=== PATIENT | female | born 1990 | race American Indian/Alaskan Native ===

== ENCOUNTER 2019-10-11 23:18 | Emergency (ER) | payer MEDICAID ==
[2019-10-12 00:21] LABS: Basophils % (Auto) 0.5 % (0.0-1.8); Eosinophils # (Auto) 0.2 K/mm3 (0.0-0.4); Eosinophils % (Auto) 2.3 % (0.0-4.3); Hematocrit 30.6 % (30.3-42.9); Hemoglobin 9.9 gm/dl (10.1-14.3); Lymphocytes # (Auto) 1.9 K/mm3 (1.2-5.4); Lymphocytes % (Auto) 27.8 % (13.4-35.0); Mean Corpuscular HGB Conc 32 % (30-34); Mean Corpuscular Volume 82 fl (79-97); Monocytes # (Auto) 0.4 K/mm3 (0.0-0.8); Monocytes % (Auto) 5.9 % (0.0-7.3); Platelet Count 167 K/mm3 (140-440); Red Blood Count 3.71 M/mm3 (3.65-5.03); Red Cell Distribution Width 15.5 % (13.2-15.2)
[2019-10-12 00:38] LABS: Bilirubin,Urine NEG (Negative); Blood,Urine LG (Negative); Color,Urine Yellow (Yellow); Mucus,Urine FEW /HPF; Urobilinogen,Urine < 2.0 mg/dL (<2.0)
[2019-10-12] MEDS ORDERED: ACETAMINOPHEN 325 MG TAB PO ONE (01:02)
--- NOTE | 2019-10-12 01:24 | Ultrasound Report ---
ULTRASOUND OBSTETRIC INDICATION / CLINICAL INFORMATION: 16 weeks with vaginal bleeding. Clinical Gestational Age (GA): 15 weeks 6 days TECHNIQUE: Transabdominal. COMPARISON: None available. FINDINGS: There is a single intrauterine . Biparietal Diameter = 3.4 cm = 16 weeks, 3 day(s). Head Circumference = 11.8 cm = 15 weeks, 6 day(s). Abdominal Circumference = 10.7 cm = 16 weeks, 4 day(s). Femur Length = 1.8 cm = 15 weeks, 3 day(s). Average Ultrasound Age (AUA) = 16 weeks, 1 day(s). Heart Rate: 155 beats per minute. Estimated Weight in grams (if calculated): 142 +/- 21 Estimated Weight Growth Percentile (if calculated): Position: cephalic. Cervix: closed. Length in cm (if measured): 5.2 Placenta: Anterior left lateral grade 0 and free of the os. Amniotic Fluid Volume: normal Amniotic Fluid Index (ASHA) in cm (if calculated): 7.0. Maternal Adnexa: Left ovary within normal limits. Simple right ovarian cyst measures 8.6 x 4.3 x 5.2 cm IMPRESSION: 1. Single, living intrauterine with estimated sonographic age of 16 weeks, 1 day(s). 2. 8.6 cm right ovarian follicular cyst Signer Name: Marcos Yusuf MD Signed: 10/12/2019 1:19 AM Workstation Name: [id number]
[2019-10-12 01:39] VITALS: BP 142/78
--- NOTE | 2019-10-12 01:50 | Emergency Department Report ---
ED HPI - General Chief complaint: Vaginal Bleeding Stated complaint: 16WEEKS BLEEDING Time Seen by Provider: 10/12/19 00:51 Source: patient Mode of arrival: Ambulatory Limitations: No Limitations - History of Present Illness Initial comments: Patient is a 28-year-old female presents emergency room with complaints of an episode of vaginal bleeding that occurred tonight when she went to the bathroom to urinate. She states that she had another episode when she first arrived to the emergency department. She states that the bleeding has since significantly improved. She states that she had some mild lower abdominal cramping but no significant pain. She denies any nausea, vomiting, diarrhea, fever, dysuria. She states that she has an appointment with [facility] this morning at 8:45 AM. She states that she also has an appointment with a high risk clinic on October 17. Patient states that she has a known ovarian cyst. /P:4/A:1. She states that she has had vaginal bleeding with previous pregnancies but they could not tell her what the bleeding was from. - Related Data Allergies Allergy/AdvReac Type Severity Reaction Status Date / Time codeine Allergy Swelling Verified 10/11/19 23:35 ED Review of Systems ROS: Stated complaint: 16WEEKS BLEEDING Other details as noted in HPI Comment: All other systems reviewed and negative ED Past Medical Hx - Past Medical History Previous Medical History?: Yes Hx Hypertension: Yes - Surgical History Past Surgical History?: Yes Hx Cholecystectomy: Yes - Social History Smoking Status: Never Smoker ED Physical Exam - General Limitations: No Limitations General appearance: alert, in no apparent distress - Head Head exam: Present: atraumatic, normocephalic - Eye Eye exam: Present: normal appearance - ENT ENT exam: Present: mucous membranes moist - Respiratory Respiratory exam: Present: normal lung sounds bilaterally. Absent: respiratory distress, wheezes, rales, rhonchi, stridor, chest wall tenderness, accessory muscle use, decreased breath sounds, prolonged expiratory - Cardiovascular Cardiovascular Exam: Present: regular rate, normal rhythm, normal heart sounds. Absent: systolic murmur, diastolic murmur, rubs, gallop - GI/Abdominal GI/Abdominal exam: Present: soft, normal bowel sounds. Absent: distended, tenderness, guarding, rebound, rigid - Neurological Exam Neurological exam: Present: alert, oriented X3 - Psychiatric Psychiatric exam: Present: normal affect, normal mood - Skin Skin exam: Present: warm, dry, intact ED Course Vital Signs 10/11/19 10/12/19 23:28 02:30 Temperature 98.3 F Pulse Rate 104 H 71 Respiratory 18 17 Rate Blood Pressure 142/78 O2 Sat by Pulse 100 100 Oximetry ED Medical Decision Making - Lab Data Result diagrams: 10/11/19 23:53 Lab Results 10/11/19 10/11/19 10/11/19 Range/Units 23:53 23:53 23:55 WBC 6.9 (4.5-11.0) K/mm3 RBC 3.71 (3.65-5.03) M/mm3 Hgb 9.9 L (10.1-14.3) gm/dl Hct 30.6 (30.3-42.9) % MCV 82 (79-97) fl MCH 27 L (28-32) pg MCHC 32 (30-34) % RDW 15.5 H (13.2-15.2) % Plt Count 167 (140-440) K/mm3 Lymph % (Auto) 27.8 (13.4-35.0) % [place] % (Auto) 5.9 (0.0-7.3) % Eos % (Auto) 2.3 (0.0-4.3) % Baso % (Auto) 0.5 (0.0-1.8) % Lymph # 1.9 (1.2-5.4) K/mm3 [place] # 0.4 (0.0-0.8) K/mm3 Eos # 0.2 (0.0-0.4) K/mm3 Baso # 0.0 (0.0-0.1) K/mm3 Seg Neutrophils % 63.5 (40.0-70.0) % Seg Neutrophils # 4.4 (1.8-7.7) K/mm3 HCG, Quant 39400 H (0-4) mIU/mL Urine Color (Yellow) Urine Turbidity (Clear) Urine pH (5.0-7.0) Ur Specific [place] (1.003-1.030) Urine Protein (Negative) mg/dL Urine Glucose (UA) (Negative) mg/dL Urine Ketones (Negative) mg/dL Urine Blood (Negative) Urine Nitrite (Negative) Urine Bilirubin (Negative) Urine Urobilinogen (<2.0) mg/dL Ur Leukocyte Esterase (Negative) Urine WBC (Auto) (0.0-6.0) /HPF Urine RBC (Auto) (0.0-6.0) /HPF U Epithel Cells (Auto) (0-13.0) /HPF Urine Mucus /HPF Blood Type A POSITIVE 10/11/19 Range/Units Unknown WBC (4.5-11.0) K/mm3 RBC (3.65-5.03) M/mm3 Hgb (10.1-14.3) gm/dl Hct (30.3-42.9) % MCV (79-97) fl MCH (28-32) pg MCHC (30-34) % RDW (13.2-15.2) % Plt Count (140-440) K/mm3 Lymph % (Auto) (13.4-35.0) % [place] % (Auto) (0.0-7.3) % Eos % (Auto) (0.0-4.3) % Baso % (Auto) (0.0-1.8) % Lymph # (1.2-5.4) K/mm3 [place] # (0.0-0.8) K/mm3 Eos # (0.0-0.4) K/mm3 Baso # (0.0-0.1) K/mm3 Seg Neutrophils % (40.0-70.0) % Seg Neutrophils # (1.8-7.7) K/mm3 HCG, Quant (0-4) mIU/mL Urine Color Yellow (Yellow) Urine Turbidity Clear (Clear) Urine pH 6.0 (5.0-7.0) Ur Specific [place] 1.025 (1.003-1.030) Urine Protein 30 mg/dl (Negative) mg/dL Urine Glucose (UA) Neg (Negative) mg/dL Urine Ketones Neg (Negative) mg/dL Urine Blood Lg (Negative) Urine Nitrite Neg (Negative) Urine Bilirubin Neg (Negative) Urine Urobilinogen < 2.0 (<2.0) mg/dL Ur Leukocyte Esterase Neg (Negative) Urine WBC (Auto) 3.0 (0.0-6.0) /HPF Urine RBC (Auto) 5.0 (0.0-6.0) /HPF U Epithel Cells (Auto) 6.0 (0-13.0) /HPF Urine Mucus Few /HPF Blood Type Vital Signs 10/11/19 10/12/19 23:28 02:30 Temperature 98.3 F Pulse Rate 104 H 71 Respiratory 18 17 Rate Blood Pressure 142/78 O2 Sat by Pulse 100 100 Oximetry - Radiology Data Radiology results: report reviewed ULTRASOUND OBSTETRIC INDICATION / CLINICAL INFORMATION: 16 weeks with vaginal bleeding. Clinical Gestational Age (GA): 15 weeks 6 days TECHNIQUE: Transabdominal. COMPARISON: None available. FINDINGS: There is a single intrauterine . Biparietal Diameter = 3.4 cm = 16 weeks, 3 day(s). Head Circumference = 11.8 cm = 15 weeks, 6 day(s). Abdominal Circumference = 10.7 cm = 16 weeks, 4 day(s). Femur Length = 1.8 cm = 15 weeks, 3 day(s). Average Ultrasound Age (AUA) = 16 weeks, 1 day(s). Heart Rate: 155 beats per minute. Estimated Weight in grams (if calculated): 142 +/- 21 Estimated Weight Growth Percentile (if calculated): Position: cephalic. Cervix: closed. Length in cm (if measured): 5.2 Placenta: Anterior left lateral grade 0 and free of the os. Amniotic Fluid Volume: normal Amniotic Fluid Index (ASHA) in cm (if calculated): 7.0. Maternal Adnexa: Left ovary within normal limits. Simple right ovarian cyst measures 8.6 x 4.3 x 5.2 cm IMPRESSION: 1. Single, living intrauterine with estimated sonographic age of 16 weeks, 1 day(s). 2. 8.6 cm right ovarian follicular cyst Signer Name: Marcos Yusuf MD Signed: 10/12/2019 1:19 AM Workstation Name: [id number] Transcribed By: TL Dictated By: Marcos Yusuf MD Electronically Authenticated By: Marcos Yusuf MD Signed Date/Time: 10/12/19118 DD/ 5 TD/TT: - Medical Decision Making Patient is a 28-year-old female presents emergency room with complaints of an episode of vaginal bleeding that occurred tonight when she went to the bathroom to urinate. She states that she had another episode when she first arrived to the emergency department. She states that the bleeding has since significantly improved. She states that she had some mild lower abdominal cramping but no significant pain. She denies any nausea, vomiting, diarrhea, fever, dysuria. She states that she has an appointment with [facility] this morning at 8:45 AM. She states that she also has an appointment with a high risk clinic on October 17. Patient states that she has a known ovarian cyst. /P:4/A:1. She states that she has had vaginal bleeding with previous pregnancies but they could not tell her what the bleeding was from. vss. no abd ttp on exam. CBC is stable. [place] [address]. UA without UTI or significant amount of RBCs. US OB: 1. Single, living intrauterine with estimated sonographic age of 16 weeks, 1 day(s). 2. 8.6 cm right ovarian follicular cyst. Discussed all results with patient and patient given ultrasound report. Discussed threatened miscarriage with the patient given bleeding while and discussed the importance of [facility] follow-up in the next 2 days, she states that she already has an appointment today at 8:45 AM with [facility]. advised pt May take Tylenol as needed for discomfort. Please increase your water intake. Please continue to take your vitamin [id number]. Please keep your appointment with [facility] this morning. Please keep your appointment with your high risk clinic. Return to emergency room for any new or worsening symptoms. - Differential Diagnosis Subchorionic hemorrhage, UTI, hemorrhagic cyst, placenta previa/abruption Critical care attestation.: If time is entered above; I have spent that time in minutes in the direct care of this critically ill patient, excluding procedure time. ED Disposition Clinical Impression: Threatened miscarriage Ovarian cyst Qualifiers: Laterality: right Qualified Code(s): N83.201 - Unspecified ovarian cyst, right side Disposition: DC-01 TO HOME OR SELFCARE Is pt being admited?: No Does the pt Need Aspirin: No Condition: Stable Instructions: Threatened Miscarriage (ED), Ovarian Cyst (ED) Additional Instructions: May take Tylenol as needed for discomfort. Please increase your water intake. Please continue to take your vitamin [id number]. Please keep your appointment with [facility] this morning. Please keep your appointment with your high risk clinic. Return to emergency room for any new or worsening symptoms. Referrals: [facility] [Provider Group] - [place] Time of Disposition: 01:49 Print Language: POLISH
== END 2019-10-12 02:30 | disposition home or self-care (01) ==
LOC: ED 23:18
DX: O20.0 Threatened abortion (principal); O34.82 Maternal care for other abnormalities of pelvic organs, second trimester; N83.291 Other ovarian cyst, right side; Z3A.16 16 weeks gestation of pregnancy
CPT/HCPCS: 36415; 76805; 81001; 84702; 85025; 86900; 86901

== ENCOUNTER 2019-10-24 13:21 | Emergency (ER) | payer MEDICAID ==
[2019-10-24] MEDS ORDERED: LACTATED RINGERS 1,000 ML IV ONE (15:32)
--- NOTE | 2019-10-24 15:34 | Event Note ---
ED Screening Note Date of service: 10/24/19 Time: 15:33 ED Screening Note: 18-week patient presents with complaints of right sided abdominal pain Patient is mildly hypotensive at 96/43-she states history of this and has previously been on medication for hypotension [facility] Denies vaginal bleeding or dysuria History of cholecystectomy earlier this year +N/V This initial assessment/diagnostic orders/clinical plan/treatment(s) is/are subject to change based on patients health status, clinical progression and re- assessment by fellow clinical providers in the ED. Further treatment and workup at subsequent clinical providers discretion. Patient/guardian urged not to elope from the ED as their condition may be serious if not clinically assessed and managed. Initial orders include: UA labs abdominal US
[2019-10-24 16:17] LABS: Basophils % (Auto) 0.5 % (0.0-1.8); Eosinophils % (Auto) 0.4 % (0.0-4.3); Hematocrit 31.7 % (30.3-42.9); Hemoglobin 10.5 gm/dl (10.1-14.3); Lymphocytes # (Auto) 0.8 K/mm3 (1.2-5.4); Lymphocytes % (Auto) 12.2 % (13.4-35.0); Mean Corpuscular HGB Conc 33 % (30-34); Mean Corpuscular Volume 84 fl (79-97); Monocytes # (Auto) 0.3 K/mm3 (0.0-0.8); Monocytes % (Auto) 5.1 % (0.0-7.3); Platelet Count 165 K/mm3 (140-440); Red Blood Count 3.77 M/mm3 (3.65-5.03); Red Cell Distribution Width 15.8 % (13.2-15.2)
[2019-10-24 16:26] LABS: Bacteria,Urine 1+ /HPF (Negative); Bilirubin,Urine NEG (Negative); Blood,Urine NEG (Negative); Color,Urine Amber (Yellow); Hyaline Casts,Urine 4 /LPF; Mucus,Urine 3+ /HPF
[2019-10-24 17:29] LABS: BUN/Creatinine Ratio 16; Blood Urea Nitrogen 13 mg/dL (7-17)
[2019-10-24 17:30] LABS: Alanine Aminotransferase 25 units/L (7-56); Albumin 3.8 g/dL (3.9-5); Calcium 9.3 mg/dL (8.4-10.2); Hemolysis Index 0
--- NOTE | 2019-10-24 17:50 | Emergency Department Report ---
HPI - General Chief Complaint: Nausea/Vomiting/Diarrhea Time Seen by Provider: 10/24/19 17:33 - HPI HPI: This is a 28-year-old -[place] female presents to the emergency department with complaint of a 1 to 2-day history of nausea and vomiting, as w ell as upper abdominal pain, while . Patient is currently about 18 weeks and with this she is G6, P4 with one previous stillbirth. She follows with [facility] for [facility]. She denies any lower abdominal or pelvic pain, vaginal bleeding, dysuria, vaginal discharge. She has not taken anything for symptoms prior to presentation. She also has a history of hypertension. No recent travel or sick contacts at home. ED Past Medical Hx - Past Medical History Previous Medical History?: Yes Hx Hypertension: Yes - Surgical History Past Surgical History?: Yes Hx Cholecystectomy: Yes - Social History Smoking Status: Never Smoker Substance Use Type: None - Medications Home Medications: Home Medications Medication Instructions Recorded Confirmed Last Taken Type Nitrofurantoin [place]/M-Cryst 100 mg PO Q12HR #14 capsule 10/24/19 Unknown Rx [Macrobid CAP] ED Review of Systems ROS: Stated complaint: N/V ABD DISCOMFORT Other details as noted in HPI Comment: All other systems reviewed and negative Constitutional: denies: chills, fever Eyes: denies: eye pain, vision change Respiratory: denies: cough, shortness of breath Cardiovascular: denies: chest pain, palpitations Gastrointestinal: abdominal pain, nausea, vomiting Genitourinary: denies: dysuria, discharge Musculoskeletal: denies: back pain, arthralgia Neurological: denies: headache, weakness Physical Exam - Physical Exam Vital Signs: Vital Signs 10/24/19 15:26 Temperature 98.7 F Pulse Rate 65 Respiratory 18 Rate Blood Pressure 96/43 O2 Sat by Pulse 100 Oximetry Physical Exam: GENERAL: The patient is well-developed well-nourished. HENT: Normocephalic. Atraumatic. Patient has moist mucous membranes. EYES: Extraocular motions are intact. NECK: Supple. Trachea is midline. CHEST/LUNGS: Clear to auscultation. There is no respiratory distress noted. HEART/CARDIOVASCULAR: Regular. There is no tachycardia. There is no murmur. ABDOMEN: Abdomen is soft. Mild epigastric tenderness to palpation. No guarding. Patient has normal bowel sounds. Obese habitus. SKIN: Skin is warm and dry. NEURO: The patient is awake, alert, and oriented. The patient is cooperative. Normal speech. MUSCULOSKELETAL: There is no tenderness or deformity. There is no evidence of acute injury. ED Course Vital Signs 10/24/19 15:26 Temperature 98.7 F Pulse Rate 65 Respiratory 18 Rate Blood Pressure 96/43 O2 Sat by Pulse 100 Oximetry ED Medical Decision Making - Lab Data Result diagrams: 10/24/19 15:41 10/24/19 15:41 - Radiology Data Radiology results: report reviewed ULTRASOUND ABDOMEN, COMPLETE INDICATION: right upper/flank pain, 18 wks . COMPARISON: No relevant prior imaging study available. FINDINGS: Pancreas: No significant abnormality. Abdominal Aorta: No significant abnormality. IVC: No significant abnormality. Liver: The liver measures 18.7 cm in length. No significant abnormality. Normal hepatopedal blood flow in the main portal vein. Gallbladder: No significant abnormality. Bile ducts: No significant abnormality. Common bile duct measures 5 mm. Kidneys: Right: 11.6 cm in length. No significant abnormality. Left: 13.2 cm in length. Nonobstructive nephrolithiasis in the midpole measuring 5 mm. Spleen: No significant abnormali ty. Free fluid: None. Additional Findings: There is a large simple right ovarian cyst in the right lower quadrant measuring 10 cm in maximal dimension. IMPRESSION: 1. Hepatomegaly with no acute abnormality in the abdomen. 2. Nonobstructive nephrolithiasis in the left kidney measuring 5 mm in the midpole. 3. Incidental large simple right ovarian cyst measuring 10 cm. - Medical Decision Making This patient presents with upper abdominal pain and some previous nausea and vomiting. She denies any lower abdominal or pelvic pain, vaginal bleeding. Patient's labs are mostly unremarkable except for slight elevation in her AST level and a mild urinary tract infection. An abdominal ultrasound was done that shows hepatomegaly without any acute abnormality in the abdomen and incidental right ovarian cyst that was previously seen. heart tones were done and found to be about 160 bpm. Patient was given some lactated Ringer's, IV fluid resuscitation, through triage. No antiemetics were given and the patient does not have any further nausea and has been able to pass an oral challenge. She has good outpatient follow-up with [facility]. Vital signs stable throughout her ED course. Critical Care Time: No Critical care attestation.: If time is entered above; I have spent that time in minutes in the direct care of this critically ill patient, excluding procedure time. ED Disposition Clinical Impression: Upper abdominal pain, Elevated liver enzymes Qualifiers: Weeks of gestation: 18 weeks Qualified Code(s): Z3A.18 - 18 weeks gestation of UTI (urinary tract infection) Qualifiers: Urinary tract infection type: acute cystitis Hematuria presence: without hematuria Qualified Code(s): N30.00 - Acute cystitis without hematuria Ovarian cyst Qualifiers: Laterality: right Qualified Code(s): N83.201 - Unspecified ovarian cyst, right side Disposition: TO HOME OR SELFCARE Is pt being admited?: No Condition: Stable Instructions: (ED), Ovarian Cyst (ED), Urinary Tract Infection in Women (ED), Abdominal Pain (ED) Additional Instructions: Please follow-up with your [facility] in the next few days. Increase your oral rehydration. I am giving you a referral for [facility] to follow-up regarding the elevated liver enzyme. Return to the emergency department with any worsening of your symptoms, development of pelvic pain or vaginal bleeding, or with any acute distress. Take the antibiotics as prescribed. Prescriptions: Nitrofurantoin [place]/M-Cryst [Macrobid CAP] 100 mg PO Q12HR #14 capsule Referrals: [facility] [Provider Group] - 2-3 Days [facility] [Provider Group] - 2-3 Days Time of Disposition: 18:21
[2019-10-24 17:52] VITALS: BP 115/75
--- NOTE | 2019-10-24 18:05 | Ultrasound Report ---
ULTRASOUND ABDOMEN, COMPLETE INDICATION: right upper/flank pain, 18 wks . COMPARISON: No relevant prior imaging study available. FINDINGS: Pancreas: No significant abnormality. Abdominal Aorta: No significant abnormality. IVC: No significant abnormality. Liver: The liver measures 18.7 cm in length. No significant abnormality. Normal hepatopedal blood fl ow in the main portal vein. Gallbladder: No significant abnormality. Bile ducts: No significant abnormality. Common bile duct measures 5 mm. Kidneys: Right: 11.6 cm in length. No significant abnormality. Left: 13.2 cm in length. Nonobstru ctive nephrolithiasis in the midpole measuring 5 mm. Spleen: No significant abnormality. Free fluid: None. Additional Findings: There is a large simple right ovarian cyst in the right lower quadrant measuring 10 cm in maximal dimension. IMPRESSION: 1. Hepatomegaly with no acute abnormality in the abdomen. 2. Nonobstructive nephrolithiasis in the left kidney measuring 5 mm in the midpole. 3. Incidental large simple right ovarian cyst measuring 10 cm. Signer Name: Edu Jain MD Signed: 10/24/2019 6:01 PM Workstation Name: [id number]
== END 2019-10-24 21:19 | disposition home or self-care (01) ==
LOC: ED 13:21
DX: O23.42 Unspecified infection of urinary tract in pregnancy, second trimester (principal); O34.82 Maternal care for other abnormalities of pelvic organs, second trimester; O26.892 Other specified pregnancy related conditions, second trimester; O21.8 Other vomiting complicating pregnancy; N83.209 Unspecified ovarian cyst, unspecified side; R10.10 Upper abdominal pain, unspecified; R94.5 Abnormal results of liver function studies; I10 Essential (primary) hypertension; Z90.49 Acquired absence of other specified parts of digestive tract; Z79.899 Other long term (current) drug therapy; Z88.8 Allergy status to other drugs, medicaments and biological substances; Z3A.18 18 weeks gestation of pregnancy
CPT/HCPCS: 36415; 76700; 80053; 81001; 83690; 85025; 87086; 96360; 99284; J7120